=== PATIENT | female | born 1965 | race Caucasian/White ===

== ENCOUNTER 2020-10-14 09:23 | Emergency (ER) | payer OTHER, SELFPAY ==
[2020-10-14 10:01] VITALS: BP 149/95; PULSE 90; RESP 18; TEMP 36.6; O2SAT 97; BMI 39.0
--- NOTE | 2020-10-14 10:13 | ED.GENADULT ---
HPI - General Adult General Chief complaint: Upper Respiratory Symptoms Stated complaint: covid symptoms Time Seen by Provider: 10/14/20 10:09 Source: patient Mode of arrival: ambulatory Limitations: no limitations History of Present Illness HPI narrative: 54 y/o female with history of asthma, HTN, depression, anxiety, PTSD who presents to the ED with body aches and subjective fevers for the last 4 days. She has not checked her temperature at home but reports feeling hot and cold. She also has a mild nonproductive cough. She feels like her bones hurt all over. She also reports headaches. She has taken tylenol and Percocet from a friend with some improvement in the pain. No SOB, SAINI, chest pain, N/V, abdominal pain. MD complaint: body aches Onset (ago): day(s) (4) Location: head, back, upper extremity and lower extremity Radiation: non-radiation Severity: moderate Quality: aching Pain Consistency: constant Relieving factors: medication and rest Exacerbating factors: movement Associated symptoms: cough, fever/chills, headaches and malaise Treatments prior to arrival: none Related Data Allergies Allergy/AdvReac Type Severity Reaction Status Date / Time No Known Allergies Allergy Unverified 07/23/20 19:53 Review of Systems Review of Systems: Constitutional: + Fever, + Chills ENT/Mouth: No sore throat, No Rhinorrhea, No Swallowing Difficulty Eyes: No Eye Pain, No Swelling, No Redness Cardiovascular: No Chest Pain, No SOB, No Orthopnea, No Edema Respiratory: + Cough, No Sputum, No Wheezing, No dyspnea Gastrointestinal: No Nausea, No Vomiting, No Diarrhea, No abdominal Pain Genitourinary: No Dysuria, No Urinary Frequency, No Hematuria Musculoskeletal: + joint pain, + Myalgias Skin: No Skin Lesions, No rash Neuro: + Weakness, No Numbness, No Dizziness, + Headache Psych: No Anxiety/Panic, No Depression Heme/Lymph: No Bruising, No Lymphadenopathy PMFSH Past Medical History Attestation statement: The following information was validated with the patient. Medical History Anxiety Asthma Depression GERD (gastroesophageal reflux disease) HTN (hypertension) PTSD (post-traumatic stress disorder) Social History Social History Advance Directives: No Advance Directives Information Provided: No Physical Exam Vital Signs: Vital Signs: Last Vital Signs Temp 98 F 10/14/20 10:01 Pulse 90 10/14/20 10:01 Resp 18 10/14/20 10:01 BP 149/95 H 10/14/20 10:01 Pulse Ox 97 10/14/20 10:01 Body Mass Index 39.0 Appearance: Alert. Oriented X3. No acute distress. ENT: Pharynx normal. Neck: Normal inspection. Neck supple. CVS: Normal heart rate and rhythm. Pulses normal. Respiratory: No respiratory distress. Breath sounds normal. Extremities: No lower extremity edema. Neuro: Oriented X 3. Non-focal Course Course Course Narrative: 54 y/o female presenting with subjective fevers and chills and body aches for the last 4 days. Vitals stable here, afebrile. She is non-toxic appearing and lungs are clear. Will test for COVID-19. She is up to date on her flu vaccination. Symptomatic management discussed and warning signs to return to the hospital. Medical Decision Making MDM Narrative Medical decision making narrative: possible viral infection, including COVID-19 most likely. less likely pneumonia or bronchitis. Critical Care Time Critical Care Time Critical Care Time: No Discharge Plan Discharge Clinical Impression: Acute viral syndrome Patient Disposition: Home, Self-Care Instructions: Viral Syndrome (ED), COVID-19 (Coronavirus Disease 2019) (ED) Additional Instructions: You were tested for COVID-19 today. We will call you with the results in 5-7 days. While you have a pending COVID test, assume you are positive. Do not go out in public. Wear your mask and wash your hands frequently. Disinfected surfaces in the home often. Take over the counter cold and flu medications as needed for your symptoms. Rest. Stay hydrated. Follow up with your doctor this week. If you develop shortness of breath, difficulty breathing, chest pain or any other concerning symptom call 911 or come back to the ER for further evaluation.
[2020-10-14 12:19] LABS: Influenza A PCR NEGATIVE (Negative); Influenza B PCR NEGATIVE (Negative); Resp Syncy Virus RNA Qual PCR NEGATIVE (Negative); SARS COV2 PCR INHOUSE POSITIVE (Negative)
== END 2020-10-14 10:43 | disposition home or self-care (01) ==
PROVIDERS: Physician Assistant; Emergency Provider Emergency Medicine
DX: U07.1 COVID-19 (principal); I10 Essential (primary) hypertension; J45.909 Unspecified asthma, uncomplicated
CPT/HCPCS: 0241U; 99283; U0003

== ENCOUNTER 2020-10-20 14:10 | Outpatient (REF) | payer MEDICAID, SELFPAY | END 2020-10-20 14:11 | disposition home or self-care (01) | LOC: HO.LAB 14:10 | PROVIDERS: Visit Provider Internal Medicine | DX: Z20.828 Contact with and (suspected) exposure to other viral communicable diseases (principal) | CPT/HCPCS: C9803; U0003 ==

== ENCOUNTER 2020-12-15 13:33 | Outpatient (REF) | payer MEDICAID, SELFPAY | END 2020-12-15 13:34 | disposition home or self-care (01) | LOC: HO.LAB 13:33 | PROVIDERS: Visit Provider Internal Medicine | DX: Z20.822 Contact with and (suspected) exposure to COVID-19 (principal) | CPT/HCPCS: 36415; C9803; U0003; U0005 ==

== ENCOUNTER 2021-02-01 10:53 | Outpatient (REF) | payer MEDICAID, SELFPAY ==
--- NOTE | ~2021-02-01 | XR_ITS ---
EXAMINATION: XR LUMBOSACRAL SPINE WITH OBLIQUES CLINICAL INFORMATION: Lumbago with sciatica, left side. COMPARISON: None TECHNIQUE: AP, both oblique, and lateral views of the lumbar spine. Lateral view of the lumbosacral junction. FINDINGS: There is a vestigial left T12 rib present. No acute fracture, spondylolisthesis, or spondylolysis of the lumbar spine is identified. There is facet arthropathy seen at the L4-L5 and L5-S1 level, right greater than left. No widening or fusion of the sacroiliac joints identified. There is some sclerosis seen involving the right sacroiliac joint. Psoas margins intact. XR/XR lumbar spine 4V min IMPRESSION: Facet arthropathy L4 through S1 bilaterally, right greater than left.
== END 2021-02-01 10:54 | disposition home or self-care (01) ==
LOC: HO.XRAY 10:53
PROVIDERS: PCP Registered Nurse; Visit Provider Emergency Medicine
DX: M54.42 Lumbago with sciatica, left side (principal)
CPT/HCPCS: 72110

== ENCOUNTER 2021-02-15 11:46 | Outpatient (REF) | payer MEDICAID, SELFPAY ==
--- NOTE | ~2021-02-15 | MM_ITS ---
EXAMINATION: MM SCREENING DIGITAL BREAST TOMOSYNTHESIS, BILATERAL CLINICAL INFORMATION: Screening. Asymptomatic. Prior [id number] mammography from [place] currently unavailable. The lifetime risk of breast cancer based on the Tyrer-Cuzick Model is 6%. COMPARISON: None. TECHNIQUE: Digital breast tomosynthesis is performed in both the craniocaudal and mediolateral oblique views along with computer-aided detection (CAD). Synthesized 2D images are generated from the tomosynthesis. FINDINGS: There are scattered areas of fibroglandular density (ACR BI-RADS breast composition Category b). There are no significant masses, abnormal calcifications, or other abnormalities. There are scattered bilateral benign round calcifications. The axilla and skin contours are unremarkable. Radiology department staff has requested prior out of state mammography to allow for comparison in an addendum report. MM/MM tomosynthesis screening BI IMPRESSION: No mammographic evidence of malignancy. ASSESSMENT: BI-RADS 1: Negative RECOMMENDATION: Routine annual mammography screening. This patient's information was entered into a reminder system with a target due date for their next mammogram.
== END 2021-02-15 11:47 | disposition home or self-care (01) ==
LOC: HO.MAMMO 11:46
PROVIDERS: Visit Provider Registered Nurse
DX: Z12.31 Encounter for screening mammogram for malignant neoplasm of breast (principal)
CPT/HCPCS: 77063; 77067